=== PATIENT | male | born 1960 | race Caucasian/White ===

== ENCOUNTER 2019-02-03 18:48 | Outpatient (REF) | payer SELFPAY ==
[2019-02-03 22:17] LABS: Anion Gap 9.5 mmol/L (3-11); BUN 16 mg/dL (7-18); CO2 26.5 mmol/L (21.0-32.0); CREATININE 1.01 mg/dL (0.70-1.30); Calcium 8.8 mg/dL (8.5-10.1); Chloride 105 mmol/L (98-107); Glucose 116 mg/dL (74-106); Potassium 4.1 mmol/L (3.5-5.1); Sodium 141 mmol/L (136-145)
== END 2019-02-03 19:08 ==
LOC: NCHCN 18:48
PROVIDERS: PCP Nurse Practitioner Family; Visit Provider Nurse Practitioner Family
DX: I10 Essential (primary) hypertension (principal)
CPT/HCPCS: 80048

== ENCOUNTER 2019-03-31 08:50 | Outpatient (REF) | payer OTHER, SELFPAY ==
[2019-03-31 22:20] LABS: ALT 30 U/L (16-63); AST 20 U/L (15-37); Calculated LDL 118 mg/dL (<100); Cholesterol 184 mg/dL (<200); HDL Cholesterol 45 mg/dL (40-60); Triglyceride 109 mg/dL (<150)
[2019-03-31 22:32] LABS: Creatine Kinase 143 U/L (39-308)
== END 2019-03-31 09:10 ==
LOC: NCHCN 08:50
PROVIDERS: PCP Nurse Practitioner Family; Visit Provider Nurse Practitioner Family
DX: I10 Essential (primary) hypertension (principal); E78.00 Pure hypercholesterolemia, unspecified; G47.00 Insomnia, unspecified
CPT/HCPCS: 80061; 82550; 84450; 84460

== ENCOUNTER 2020-02-12 20:27 | Outpatient (REF) | payer OTHER, SELFPAY ==
[2020-02-12 19:49] LABS: ALT 22 U/L (16-63); Anion Gap 7.8 mmol/L (3-11); BUN 20 mg/dL (7-18); CO2 25.2 mmol/L (21.0-32.0); CREATININE 0.88 mg/dL (0.70-1.30); Calcium 8.8 mg/dL (8.5-10.1); Chloride 104 mmol/L (98-107); Creatine Kinase 103 U/L (39-308); Glucose 100 mg/dL (74-106); Potassium 4.5 mmol/L (3.5-5.1); Sodium 137 mmol/L (136-145)
[2020-02-12 20:40] LABS: Calculated LDL 114 mg/dL (<100); Cholesterol 175 mg/dL (<200); HDL Cholesterol 42 mg/dL (40-60); Triglyceride 99 mg/dL (<150)
== END 2020-02-12 20:47 ==
LOC: NCHCN 20:27
PROVIDERS: PCP Nurse Practitioner Family; Visit Provider Nurse Practitioner Family
DX: I10 Essential (primary) hypertension (principal); E78.5 Hyperlipidemia, unspecified
CPT/HCPCS: 80048; 80061; 82550; 84460

== ENCOUNTER 2021-02-28 17:45 | Outpatient (REF) | payer BC, SELFPAY ==
[2021-02-28 20:09] LABS: ALT 25 U/L (16-63); AST 14 U/L (15-37); Anion Gap 8.8 mmol/L (3-11); BUN 22 mg/dL (7-18); CO2 26.2 mmol/L (21.0-32.0); CREATININE 0.9 mg/dL (0.70-1.30); Calcium 8.6 mg/dL (8.5-10.1); Chloride 107 mmol/L (98-107); Glucose 117 mg/dL (74-106); HDL Cholesterol 40 mg/dL (40-60); LDL CHOLESTEROL 114 mg/dL (<100); Potassium 4.1 mmol/L (3.5-5.1); Sodium 142 mmol/L (136-145)
[2021-02-28 20:24] LABS: Creatine Kinase 76 U/L (39-308)
== END 2021-02-28 17:46 | disposition home or self-care (01) ==
LOC: NCHCN 17:45
PROVIDERS: PCP Nurse Practitioner Family; Visit Provider Nurse Practitioner Family
DX: E78.5 Hyperlipidemia, unspecified (principal); I10 Essential (primary) hypertension
CPT/HCPCS: 80048; 82550; 83721; 83718; 84450; 84460

== ENCOUNTER 2022-05-30 15:25 | Outpatient (REF) | payer BC, SELFPAY ==
[2022-05-30 17:36] LABS: Hemoglobin A1C 5.9 % (<5.7)
[2022-05-30 18:07] LABS: ALT 25 U/L (16-63); AST 19 U/L (15-37); Albumin 3.8 g/dL (3.4-5.0); Alkaline Phosphatase 92 U/L (46-116); BUN 19 mg/dL (7-18); Bilirubin, Total 0.7 mg/dL (0.2-1.0); CREATININE 0.9 mg/dL (0.70-1.30); Calcium 8.8 mg/dL (8.5-10.1); Calculated LDL 112 mg/dL (<100); Chloride 107 mmol/L (98-107); Cholesterol 188 mg/dL (<200); Estimated GFR 96.57 (mL/min/1.73m2); Glucose 102 mg/dL (74-106); HDL Cholesterol 56 mg/dL (40-60); Potassium 4.5 mmol/L (3.5-5.1); Sodium 142 mmol/L (136-145); Total Protein 7.5 g/dL (6.4-8.2); Triglyceride 100 mg/dL (<150)
[2022-05-30 18:23] LABS: Creatine Kinase 92 U/L (39-308)
== END 2022-05-30 15:26 | disposition home or self-care (01) ==
LOC: NCHCN 15:25
PROVIDERS: PCP Nurse Practitioner Family; Visit Provider Nurse Practitioner Family
DX: Z00.00 Encounter for general adult medical examination without abnormal findings (principal); E78.5 Hyperlipidemia, unspecified; I10 Essential (primary) hypertension; Z13.1 Encounter for screening for diabetes mellitus
CPT/HCPCS: 80053; 80061; 82550; 83036

== ENCOUNTER 2023-07-05 16:04 | Outpatient (REF) | payer MEDICAID, SELFPAY ==
[2023-07-05 15:28] LABS: ALT 25 U/L (16-63); AST 24 U/L (15-37); Albumin 3.6 g/dL (3.4-5.0); Alkaline Phosphatase 85 U/L (46-116); Anion Gap 8.1 mmol/L (3-11); BUN 18 mg/dL (7-18); Bilirubin, Total 0.6 mg/dL (0.2-1.0); CO2 25.9 mmol/L (21.0-32.0); Calcium 8.5 mg/dL (8.5-10.1); Chloride 107 mmol/L (98-107); Creatine Kinase 282 U/L (39-308); Estimated GFR 84.57 (mL/min/1.73m2); Glucose 118 mg/dL (74-106); Potassium 3.8 mmol/L (3.5-5.1); Sodium 141 mmol/L (136-145)
[2023-07-05 15:47] LABS: HDL Cholesterol 54 mg/dL (40-60); LDL CHOLESTEROL 94 mg/dL (<100)
== END 2023-07-05 16:05 | disposition home or self-care (01) ==
LOC: NCHCN 16:04
PROVIDERS: PCP Nurse Practitioner Family; Visit Provider Nurse Practitioner Family
DX: I10 Essential (primary) hypertension (principal); E78.5 Hyperlipidemia, unspecified; Z13.1 Encounter for screening for diabetes mellitus
CPT/HCPCS: 80053; 82550; 83721; 83036; 83718

== ENCOUNTER 2024-04-16 06:49 | Day surgery (SDC) | payer MEDICAID, SELFPAY ==
[2024-04-16 06:50] VITALS: BP 153/79; PULSE 55; RESP 18; TEMP 36; O2SAT 95
[2024-04-16] MEDS: Lactated Ringers 1,000 ML 80 ML IV (07:18)
--- NOTE | 2024-04-16 07:28 | W.ANESPRE ---
General Info Date of Service Date Performed: 04/16/24 Height: 5 ft 5 in Weight: 86.2 kg Body Mass Index (BMI): 31.6 Surgical Procedure: Operation Date: 04/16/24 08:20 Proposed Procedure Side Surgeon rosa Barnes MD Meds Allergies and Home Medications Allergies Allergy/AdvReac Type Severity Reaction Status Date / Time No Known Allergies Allergy Verified 04/16/24 07:07 Home Medication ?Medication ?Instructions ?Recorded aspirin 81 mg tablet,delayed 81 mg PO DAILY 03/23/14 release lisinopril 10 mg tablet 10 mg PO DAILY 03/23/14 sildenafil 50 mg tablet 50 mg PO DAILY PRN 03/20/24 simvastatin 10 mg tablet (Zocor) 20 mg PO DAILY 03/20/24 bisacodyl 5 mg tablet,delayed 5 mg PO ONCE #4 tabs 04/03/24 release (Dulcolax (bisacodyl)) polyethylene glycol 3350 17 17 g PO ONCE #238 grams 04/03/24 gram/dose oral powder Current Visit Medications: Current Medications Generic Name Dose Route Start Last Admin Trade Name Freq PRN Reason Stop Dose Admin Ringer's Solution 1,000 mls @ 80 mls/hr 04/16/24 06:00 04/16/24 07:18 IV 04/16/24 23:59 80 mls/hr INFUSION EBEN Administration IV Miscellaneous Supplies 1 each 04/16/24 06:00 Iv Access IV 04/16/24 23:59 DIRECTED EBEN Sodium Chloride 0 ml 04/16/24 06:00 Normal Saline Flush 10 Ml Syr IV 04/16/24 23:59 PRN PRN Sodium Chloride 0 ml 04/16/24 06:00 Normal Saline 10 Ml Vial IJ 04/16/24 23:59 DIRECTED PRN Sterile Water 0 ml 04/16/24 06:00 Water,Injection,Sterile 10 Ml Vial IJ 04/16/24 23:59 DIRECTED PRN PFSH Active Problems Active Problems: Problem Status Onset Code SERGIO (obstructive sleep apnea) Chronic G47.33 Essential hypertension Acute I10 Hyperlipidemia Acute E78.5 Medical History Medical History Family history of malignant neoplasm of digestive organs Dysphagia Basal cell carcinoma (BCC) Erectile dysfunction Tobacco Smoking/Tobacco Use Status: Never Alcohol Alcohol Intake: former Substance Use Substance use: Never Vital Signs and Lab Results Vital Signs Most Recent Vital Signs in EMR: Most Recent Vital Signs Temp Pulse Resp BP Pulse Ox 36 C L 55 L 18 153/79 H 95 04/16/24 06:50 04/16/24 06:50 04/16/24 06:50 04/16/24 06:50 04/16/24 06:50 Lab Results Blood Type / Crossmatch: No Data to Display Complete Blood Count: No Data to Display Complete Metabolic Panel: No Data to Display Liver Function Panel: No Data to Display Coagulation Panel: No Data to Display Cardiac Panel: No Data to Display Arterial Blood Gas: No Data to Display Venous Blood Gas: No Data to Display Pancreas Panel: No Data to Display Thyroid Panel: No Data to Display Infectious Disease: No Data to Display Blood Cultures: No Data to Display Toxicology Panel: No Data to Display Anesthesia Assessment and Plan Anesthesia History Personal History: No History of Anesthesia Complications Family History: No Family History of Anesthesia Complications Exercise Tolerance Exercise Tolerance: Metabolic Equivalents>4 Pertinent Negatives Pertinent Negatives: No Symptoms of GERD, No Major Cardiovascular Symptoms or Complaints and No Major Pulmonary Symptoms or Complaints Cardiac & Pulmonary Exam Cardiac Exam: Normal S1/S2 Heart Sounds Pulmonary Exam: Clear Bilateral Breath Sounds Cardiac and Pulmonary Comment:: SERGIO, no device or CPAP Implantable Cardiac Device Does patient have a Pacemaker or an ICD?: No Airway Exam Known Difficult Airway: No Mallampati Class: 3 Mouth Opening: Normal (> 3cm) Thyromental Distance: Greater than 3 cm Neck Range of Motion: Full ROM Neck Circumference: Normal Teeth Condition: Edentulous ASA Classification ASA Score: ASA 2 Emergency Case?: No NPO Status NPO Status: NPO Clears >2 hours, Solids >8 hours Anesthesia Plan Resuscitation Status: Full Code Anesthesia Technique: General Anesthesia Airway Planned: Natural Airway Monitors Used: Standard Monitors
[2024-04-16 07:31] VITALS: BMI 31.6
[2024-04-16 08:08] VITALS: BP 123/79; PULSE 57; RESP 16; TEMP 36.1; O2SAT 92
--- NOTE | 2024-04-16 08:34 | W.ANESPOSTOP ---
Postoperative Evaluation Date, Time and Location Date Performed: 04/16/24 Time Performed: 08:34 Patient Location: Day Surgery Unit Vital Signs Most Recent Imported Vital Signs: Most Recent Vital Signs Temp Pulse Resp BP Pulse Ox 36.1 C L 57 L 16 123/79 92 04/16/24 08:08 04/16/24 08:08 04/16/24 08:08 04/16/24 08:08 04/16/24 08:08 Pain Score Most Recent Pain Score: Most Recent Pain Score Pain Level 0 04/16/24 08:08 Assessment Mental Status: Awake (Alert & Oriented to Patient Baseline) Airway and Respiratory Function: Patent airway with normal (patient baseline) respiratory exam Cardiovascular Function: Hemodynamically Stable Hydration Status: Adequately Hydrated Nausea & Vomiting: No Nausea or Vomiting Pain: Pt. Denies Any Pain Peripheral Nerve Block: Patient did not receive a nerve block
[2024-04-16 08:42] VITALS: BP 133/79; PULSE 50; RESP 16; TEMP 36.4; O2SAT 94
--- NOTE | 2024-04-16 08:43 | W.COLOREPORT ---
Date of service: 04/16/24 Time of Service: 08:43 Colonoscopy Report Procedure Description: PROCEDURES PERFORMED: 1. Colonoscopy PREOPERATIVE DIAGNOSIS: Surveillance colonoscopy, Family history colon cancer POSTOPERATIVE DIAGNOSIS: Minimal diverticulosis SURGEON: Obdulio Barnes MD INDICATION FOR PROCEDURE: The patient is a 64-year-old man who has a brother who had colon cancer. He has no symptoms and has never had findings on previous colonoscopies. FINDINGS: Normal terminal ileum. No polyps or inflammatory processes seen in the colon. There was 2 scattered minimal diverticuli present in the sigmoid colon. No obvious hemorrhoid disease. SURVEILLANCE interval/FOLLOW-UP: 5 years because of the family history SPECIMENS: None EBL: Minimal COMPLICATIONS: None QUALITY of prep: Excellent Procedure in detail: The patient gave written consent and was in agreement with the indications, the potential risks as well as the benefits of the procedure. They were taken to the endoscopy suite and laid in the left lateral decubitus position. A timeout was performed and anesthesia was administered which was tolerated well. I started the procedure. Digital rectal and visual examination was performed and grossly within normal limits. A well-lubricated flexible colonoscope was then introduced and passed without any notable difficulty all the way to the cecum identified by the ileocecal valve and the appendiceal orifice. The terminal ileum was intubated and looked normal. The scope was then slowly withdrawn with the above-noted findings. The patient tolerated the procedure well and was taken to the PACU in hemodynamically stable condition.
--- NOTE | 2024-04-16 08:43 | W.PM.DSUDISC ---
Date of service: 04/16/24 Discharge Plan Disposition Patient Disposition: Home Condition: Good Discharge Details Attending Provider: Martin Barnes Primary Care Provider: Sade Ospina Home Meds and New Rx's Prescriptions: No Action bisacodyl [Dulcolax (bisacodyl)] 5 mg tablet,delayed release (DR/EC) 5 mg PO ONCE Qty: 4 0RF Rx Instructions: Take per colonoscopy instructions provided by ordering providers office polyethylene glycol 3350 17 gram/dose powder 17 g PO ONCE Qty: 238 0RF Rx Instructions: Take per colonoscopy instructions provided by ordering providers office aspirin 81 MG tablet,delayed release (DR/EC) 81 mg PO DAILY lisinopril 10 MG tablet 10 mg PO DAILY simvastatin [Zocor] 10 mg tablet 20 mg PO DAILY sildenafil 50 mg tablet 50 mg PO DAILY PRN Rx Instructions: administer 30 minutes to 4 hours before activity Discharge Instructions Additional Instructions: FINDINGS: Your prep was excellent. No concerning lesions anywhere. No polyps. You did have a couple of small diverticuli which are completely benign and meaningless. Because of your family history, I do recommend that you have another colonoscopy in 5 years. Stand Alone Forms: Anesthesia Discharge Inst., Colonoscopy Post Instructions, Pari Vu (DSU) Activity:: Activity as Tolerated Diet:: As Tolerated
== END 2024-04-16 09:01 | disposition home or self-care (01) ==
PROVIDERS: PCP Nurse Practitioner Family; Visit Provider Student in an Organized Health Care Education/Training Program
PROC: 0DJD8ZZ Inspection of Lower Intestinal Tract, Via Natural or Artificial Opening Endoscopic (ICD-10-PCS; CPT 45378; principal; 2024-04-16 08:15)
DX: Z12.11 Encounter for screening for malignant neoplasm of colon (principal); Z80.0 Family history of malignant neoplasm of digestive organs
CPT/HCPCS: 45378; J2003; J2704

== ENCOUNTER 2024-11-20 17:22 | Outpatient (REF) | payer MEDICAID, SELFPAY ==
[2024-11-20 18:25] LABS: Hemoglobin A1C 5.7 % (<5.7)
[2024-11-20 18:39] LABS: ALT 25 U/L (16-63); AST 21 U/L (15-37); Albumin 3.7 g/dL (3.4-5.0); Alkaline Phosphatase 101 U/L (46-116); Anion Gap 10.7 mmol/L (3-11); BUN 21 mg/dL (7-18); Bilirubin, Total 0.5 mg/dL (0.2-1.0); CO2 25.3 mmol/L (21.0-32.0); Calcium 8.9 mg/dL (8.5-10.1); Chloride 104 mmol/L (98-107); Estimated GFR 95.37 (mL/min/1.73m2); Glucose 117 mg/dL (74-106); Potassium 4.2 mmol/L (3.5-5.1); Sodium 140 mmol/L (136-145); Total Protein 7.0 g/dL (6.4-8.2)
[2024-11-21 18:54] LABS: HIV-1/2 Ag & Ab Screen Negative (Negative)
[2024-11-21 19:00] LABS: Hepatitis C Ab w Rflx HCV PCR Negative (Negative)
== END 2024-11-20 17:23 | disposition home or self-care (01) ==
LOC: NCHCN 17:22
PROVIDERS: PCP Nurse Practitioner Family; Visit Provider Nurse Practitioner Family
DX: Z00.00 Encounter for general adult medical examination without abnormal findings (principal); R73.03 Prediabetes
CPT/HCPCS: 80053; 86803; 87389; 83036